=== PATIENT | female | born 1990 | race American Indian/Alaskan Native ===

== ENCOUNTER 2022-04-09 13:35 | Inpatient (IN) ==
[2022-04-09] MEDS ORDERED: Buffered Lidocaine 1% SYRIN 1 ml INTRADERM ONE (14:24)
[2022-04-09] MEDS ORDERED: Lactated Ringers 1000 ml BAG 1,000 ML IV ONE (14:24)
[2022-04-09] MEDS ORDERED: Lactated Ringers 1000 ml BAG 1,000 ML IV SCH ×2 (15:00→19:00)
[2022-04-09 15:41] LABS: Urine Benzodiazepine Screen None Detected (None Detect); Urine Cannabinoids Screen None Detected (None Detect); Urine Opiates Screen None Detected (None Detect)
[2022-04-09] MEDS ORDERED: Glycerin ADULT 2.4 gm SUPP PR PRN (18:23)
[2022-04-09] MEDS ORDERED: Witch Hazel PAD JAR TOPICAL PRN (18:23)
[2022-04-09] MEDS ORDERED: Dibucaine 1% OINT 28.35 GM TUBE PR PRN (18:23)
[2022-04-10 06:12] LABS: ABS Eosinophils 0.1 10^3/ul (0-0.6); ABS Monocytes 0.9 10^3/ul (0-0.8); Eosinophil % 0.6 %; Hematocrit 31 % (35-47); Hemoglobin 10.6 g/dL (12.0-16.0); Mean Corpuscular HGB Conc 34 g/dL (31-36); Mean Corpuscular Hemoglobin 31 pg (27-31); Mean Corpuscular Volume 92 fL (80-97); Mean Platelet Volume 10.5 fL (7.4-10.4); Platelet Count 128 10^3/uL (150-450); Red Blood Count 3.38 10^6 /uL (3.70-4.87); Red Cell Distribution Width 17 % (10-15)
[2022-04-10 16:13] VITALS: BP 132/71
== END 2022-04-10 18:54 | disposition home or self-care (01) | DRG 560 ==
LOC: MCHOBOUT 13:35 → MCHOB 14:17
PROVIDERS: ADMIT Midwife; ATTEND Midwife